=== PATIENT | female | born 1950 | race Caucasian/White ===

== ENCOUNTER 2020-07-15 09:40 | Day surgery (SDC) | payer MEDICARE, BC ==
[~2020-07-15] VITALS: Ht 167.6 cm; Wt 88.7 kg
[~2020-07-15 09:40] MED LIST: PRINIVIL5 MG PO
--- NOTE | 2020-07-15 16:56 | NUR ---
PT CAME TO THE UNIT AROUND 1630 ON 07/15/2020. SHE IS POD 0 OF A RIGHT TOTAL KNEE REPLACEMENT. SHE WAS ALERT AND ORIENTED X4. VITAL SIGNS WERE WNL AND WAS ON RA. SHE HAD SPINAL ANESTHESIA AND STILL CAN NOT FEEL HER LEGS. PT REPORTS THEM FEELING LIKE " WEIGHT". SHE DOES NOT FEEL ANY PAIN AT THIS TIME. SHE REPORTS NUMBNESS BUT HAS STRONG PULSES IN BOTH LEGS. HER RIGHT KNEE AQUACEL AND NAT WRAP ARE D/C/I. SHE HAS TOLERATED PO INTAKE. SHE IS CURRENTLY LAYING IN BED WITH HER ONLINE BOOK READING. CALL LIGHT IS WITHIN REACH.
--- NOTE | 2020-07-15 18:22 | NUR ---
SHIFT SUMMARY: POD 0 RIGHT KNEE REPLACEMENT PT IS ALERT AND ORIENTED X4. VS ARE WNL AND IS ON RA. PT HAD SPINAL ANESTHESIA. HER RIGHT KNEE IS SWOLLEN AND RED BUT HAS STRONG PULSES IN BLE. PT REPORTS HAVING TINGLING IN LEGS NOW AND CAN MOVE HER LEGS MORE. HER NAT WRAP AND AQUACEL IS D/C/I. SHE IS A REJI PT TO WORK WITH. SHE IS CURRENTLY CHATTING WITH A FRIEND WHILE LAYING IN BED. CALL LIGHT WITHIN REACH. SHE IS TOLERATING PO INTAKE. PT REPORTS NOT HAVING PAIN YET. THE PLAN IS TO WORK WITH PT TOMORROW AND TO CONTINUE TO MANAGE PAIN.
[2020-07-16 04:41] LABS: BASOPHILS ABSOLUTE AUTO 0.02 K/mm3 (0.00-0.23); BASOPHILS PERCENT AUTO 0 % (0-2); EOSINOPHILS PERCENT AUTO 0 % (0-6); Hematocrit 36.4 % (33.0-51.0); Hemoglobin 12.1 g/dL (11.5-16.0); IMMATURE GRAN ABSOLUTE AUTO 0.07 K/mm3 (0.00-0.10); IMMATURE GRAN PERCENT AUTO 1 % (0-1); LYMPHOCYTES ABSOLUTE AUTO 0.75 K/mm3 (0.84-5.20); LYMPHOCYTES PERCENT AUTO 5 % (21-46); MONOCYTES ABSOLUTE AUTO 0.76 K/mm3 (0.16-1.47); MONOCYTES PERCENT AUTO 5 % (4-13); Mean Corpuscular HGB 32.4 pg (26.0-34.0); Mean Corpuscular HGB Conc 33.2 g/dL (31.5-36.5); Mean Corpuscular Volume 98 fL (80-100); Mean Platelet Volume 10.1 fL (9.1-12.4); NEUTROPHILS ABSOLUTE AUTO 12.82 K/mm3 (1.96-9.15); NEUTROPHILS PERCENT AUTO 89 % (41-73); Platelet Count 266 K/mm3 (150-400); RDW Coefficient Variation 12.7 % (11.7-14.2); RDW Standard Deviation 45.6 fL (35.1-46.3); Red Blood Cell Count 3.73 M/mm3 (3.80-5.20); White Blood Cell Count 14.42 K/mm3 (4.00-11.30)
--- NOTE | 2020-07-16 04:43 | NUR ---
SHIFT SUMMARY PT IS A/O X4. SBA WITH FWW TO AMBULATE. PT HAS AMBULATED THIS SHIFT. TOLERATING PO INTAKE AND VOIDING. DRESSING TO R KNEE CDI. POLAR PACK IN PLACE OVERNIGHT. PAIN MANAGED WITH TYLENOL/TORADOL AND OXY X1 PRN FOR BREAKTHROUGH. PT IS RESTING IN BED WITH CALL LIGHT IN PLACE. DENIES FURTHER NEEDS AT THIS TIME.
[2020-07-16 04:59] LABS: Anion Gap 4 mmol/L (6-16); Blood Urea Nitrogen 20 mg/dL (8-24); Bun/Creatinine Ratio 25.8 (12.0-20.0); CO2, Blood 27 mmol/L (21-32); Calcium, Blood 8.9 mg/dL (8.5-10.1); Chloride, Blood 105 mmol/L (98-108); Creatinine, Blood 0.78 mg/dL (0.40-1.00); Glomerular Filtration Rate >60 (60-); Glucose, Blood 131 mg/dL (70-99); Potassium, Blood 4.3 mmol/L (3.5-5.5); Sodium, Blood 136 mmol/L (136-145)
[2020-07-16] MEDS ORDERED: Aspir 8181 MG PO (09:02)
[2020-07-16] MEDS ORDERED: Percocet 5-3251 EACH PO (09:03)
== END 2020-07-16 11:58 | disposition home or self-care (01) ==
LOC: ORSCMMR 09:40 → ORD 11:00 → ORSCMMR 11:00 → SURS 15:43 → ORSCMMR 15:43 → SURS 07-16 11:58 → ORSCMMR 07-16 11:58
PROVIDERS: Orthopaedic Surgery
PROC: 0SRC0JA Replacement of Right Knee Joint with Synthetic Substitute, Uncemented, Open Approach (ICD-10-PCS; principal; 2020-07-15 11:00)
PROC: 8E0YXBZ Computer Assisted Procedure of Lower Extremity (ICD-10-PCS; principal; 2020-07-15 11:00)
DX: M17.11 Unilateral primary osteoarthritis, right knee (principal); I10 Essential (primary) hypertension; Z79.899 Other long term (current) drug therapy; E66.9 Obesity, unspecified; Z68.31 Body mass index [BMI] 31.0-31.9, adult
CPT/HCPCS: 36415; 73560-RT; 80048; 85025; 88300; 97110; 97116; 97162; 97530; A9270; A9270-GY; C1776; J0171; J0690; J0735; J1885; J2250; J2704; J2795; J3010; J7120

== ENCOUNTER → 2020-10-01 | Outpatient (CLI) | payer MEDICARE, BC ==
[~2020-10-01] MED LIST changes: +Aspir 8181 MG PO; +Percocet 5-3251 EACH PO
[2020-10-03 16:10] LABS: HPV 16 Negative (Negative); HPV 18 Negative (Negative); HPV OTHER HR TYPES Negative (Negative)
== END ==
LOC: LAB SHORT 15:55 → LAB 15:55
PROVIDERS: Obstetrics & Gynecology
DX: Z01.419 Encounter for gynecological examination (general) (routine) without abnormal findings (principal)
CPT/HCPCS: 87624; G0123

== ENCOUNTER → 2020-10-29 | Outpatient (CLI) | payer MEDICARE, BC | END | disposition home or self-care (01) | LOC: LAB 08:37 → LAB SHORT 08:37 | DX: L82.0 Inflamed seborrheic keratosis (principal) | CPT/HCPCS: 88305 ==

== ENCOUNTER → 2021-03-03 | Outpatient (CLI) | payer MEDICARE, BC | END | disposition home or self-care (01) | LOC: LAB 15:23 → LAB SHORT 15:23 | DX: N39.0 Urinary tract infection, site not specified (principal) | CPT/HCPCS: 87086 ==

== ENCOUNTER 2021-06-04 09:38 | Day surgery (SDC) | payer MEDICARE, BC ==
[~2021-06-04] VITALS: Ht 167.6 cm; Wt 88.9 kg
[2021-06-04] MEDS ORDERED: MELO7.5 (09:55)
[2021-06-04] MEDS ORDERED: OMEP20ER (09:56)
--- NOTE | 2021-06-04 11:30 | NUR ---
06/04/21 1130 Regina Barton 1117 O2 UP TO 5L/NC, SATS 89% ON 3L/NC. CHIN LIFT DONE.
== END 2021-06-04 12:55 | disposition home or self-care (01) ==
LOC: ORSCSDS 09:38
PROVIDERS: Student in an Organized Health Care Education/Training Program
PROC: 0DBK8ZX Excision of Ascending Colon, Via Natural or Artificial Opening Endoscopic, Diagnostic (ICD-10-PCS; principal; 2021-06-04 11:45)
PROC: 0DB48ZX Excision of Esophagogastric Junction, Via Natural or Artificial Opening Endoscopic, Diagnostic (ICD-10-PCS; principal; 2021-06-04 11:45)
PROC: 0DBL8ZX Excision of Transverse Colon, Via Natural or Artificial Opening Endoscopic, Diagnostic (ICD-10-PCS; principal; 2021-06-04 11:45)
PROC: 0DBN8ZX Excision of Sigmoid Colon, Via Natural or Artificial Opening Endoscopic, Diagnostic (ICD-10-PCS; principal; 2021-06-04 11:45)
DX: K21.9 Gastro-esophageal reflux disease without esophagitis (principal); Z12.11 Encounter for screening for malignant neoplasm of colon; Z86.010 Personal history of colon polyps; K22.70 Barrett's esophagus without dysplasia; D12.2 Benign neoplasm of ascending colon; D12.3 Benign neoplasm of transverse colon; D12.5 Benign neoplasm of sigmoid colon; K63.3 Ulcer of intestine; I10 Essential (primary) hypertension; Z79.899 Other long term (current) drug therapy
CPT/HCPCS: 88305; J2704; J7120

== ENCOUNTER → 2021-06-21 | Outpatient (CLI) | payer MEDICARE, BC ==
[~2021-06-21] MED LIST changes: +MELO7.5; +OMEP20ER
== END | disposition home or self-care (01) ==
LOC: LAB SHORT 12:07 → LAB 12:07
DX: N30.01 Acute cystitis with hematuria (principal)
CPT/HCPCS: 87077; 87086; 87186

== ENCOUNTER → 2021-11-02 | Outpatient (CLI) | payer MEDICARE, BC | END | disposition home or self-care (01) | LOC: LAB SHORT 12:19 | DX: N39.0 Urinary tract infection, site not specified (principal) | CPT/HCPCS: 87086 ==

== ENCOUNTER 2023-07-05 11:09 | Day surgery (SDC) | payer MEDICARE, BC ==
[2023-07-05] VITALS (15 sets, daily range): BP systolic 98–133; BP diastolic 52–86
[~2023-07-05] VITALS: Ht 167.6 cm; Wt 68.6 kg
[~2023-07-05 11:09] MED LIST changes: +EZALLOR SPRINKLE5 MG PO; +HYDPAM25 PO; +VALTREX PO; +Zoloft25 MG PO
--- NOTE | 2023-07-05 11:57 | NUR ---
History, Chart, Medications and Allergies reviewed before start of procedure. Ambulatory in Day Surgery. Pre-Op teaching done. Pt verbalizes understanding. Patient confirms NPO status and agrees with scheduled surgery. Patient reports completing Chlorhexadine shower X2 prior to admission to hospital. Surgical site prepped with 2% Chlorhexidine cloth wipe. Lungs clear T/O to Auscultation. Patient States Post-Procedure ride home has been arranged.
--- NOTE | 2023-07-05 16:45 | NUR ---
ARRIVAL TO SURGICAL UNIT VIA HOSPITAL BED, ALERT & PLEASANT. ASSESSMENT CHARTED. DENIES N/V. ICE WATER & SNACKS GIVEN. WILL ORDER DINNER TRAY. DENIES PAIN, BUT UNABLE TO WIGGLE TOES OR MOVE BLE R/T SPINAL.
[2023-07-06 01:08] VITALS: BP 101/58
--- NOTE | 2023-07-06 04:48 | NUR ---
SHIFT SUMMARY NOC. PT POD 1 FOR LEFT TOTAL KNEE. PT A/O X4. AQUACEL IS CLEAN, DRY, AND INTACT. PT VOIDING URINE AND AMBULATED TO THE BATHROOM. PT TOLERATING PO INTAKE. PT MEDICATED FOR PAIN WITH OXY X1 WITH RELIEF. PT RESTED WITH EYES CLOSED AND CALL LIGHT IN REACH.
[2023-07-06 05:44] VITALS: BP 93/54
[2023-07-06 06:24] LABS: BASOPHILS ABSOLUTE AUTO 0.03 K/mm3 (0.00-0.23); BASOPHILS PERCENT AUTO 0 % (0-2); EOSINOPHILS ABSOLUTE AUTO 0.04 K/mm3 (0.00-0.68); EOSINOPHILS PERCENT AUTO 0 % (0-6); Hematocrit 31.8 % (33.0-51.0); Hemoglobin 10.5 g/dL (11.5-16.0); IMMATURE GRAN ABSOLUTE AUTO 0.03 K/mm3 (0.00-0.10); IMMATURE GRAN PERCENT AUTO 0 % (0-1); LYMPHOCYTES ABSOLUTE AUTO 2.35 K/mm3 (0.84-5.20); LYMPHOCYTES PERCENT AUTO 25 % (21-46); MONOCYTES ABSOLUTE AUTO 1.01 K/mm3 (0.16-1.47); MONOCYTES PERCENT AUTO 11 % (4-13); Mean Corpuscular HGB 33.4 pg (26.0-34.0); Mean Corpuscular Volume 101 fL (80-100); Mean Platelet Volume 10.3 fL (9.1-12.4); NEUTROPHILS PERCENT AUTO 64 % (41-73); Platelet Count 203 K/mm3 (150-400); RDW Coefficient Variation 13.5 % (11.7-14.2); Red Blood Cell Count 3.14 M/mm3 (3.80-5.20); White Blood Cell Count 9.46 K/mm3 (4.00-11.30)
[2023-07-06 07:11] LABS: Bun/Creatinine Ratio 17.3 (12.0-20.0); Calcium, Blood 8.4 mg/dL (8.5-10.1); Creatinine, Blood 0.87 mg/dL (0.40-1.00); Potassium, Blood 3.8 mmol/L (3.5-5.5)
[2023-07-06 07:17] VITALS: BP 91/55
[2023-07-06] MEDS ORDERED: ASPI81CH PO (11:09)
[2023-07-06] MEDS ORDERED: Percocet 5-3251 EACH PO (11:09)
--- NOTE | 2023-07-06 13:15 | NUR ---
DISCHARGE PT DISCHARGED HOME FROM UNIT AT APROX 1220. PT GIVEN WRITTEN AND VERBAL DC INSTRUCTIONS AND VERBALIZED UNDERSTANDING OF THESE INSTRUCTIONS. WRITTEN RX'S FOR PAIN MEDICATION GIVEN TO PT, COPY IN CHART. EXTRA DRESSINGS GIVEN TO PT. WC TO CAR.
== END 2023-07-06 12:20 | disposition home or self-care (01) ==
LOC: ORSCMMR 11:09 → ORD 12:30 → SURS 16:29 → ORSCMMR 07-06 12:20
PROVIDERS: Orthopaedic Surgery
PROC: 0SRD0JA Replacement of Left Knee Joint with Synthetic Substitute, Uncemented, Open Approach (ICD-10-PCS; principal; 2023-07-05 12:30)
DX: M17.12 Unilateral primary osteoarthritis, left knee (principal); Z96.651 Presence of right artificial knee joint; I10 Essential (primary) hypertension; E78.5 Hyperlipidemia, unspecified; Z79.899 Other long term (current) drug therapy
CPT/HCPCS: 36415; 73560-LT; 80048; 85025; 97110; 97116; 97162; 97530; A9270; C1713; C1776; J0171; J0690; J0735; J1885; J2250; J2704; J2795; J7120

== ENCOUNTER → 2024-01-03 | Outpatient (CLI) | payer MEDICARE, BC ==
[~2024-01-03] MED LIST changes: +ASPI81CH PO
[2024-01-03 12:16] LABS: Source, Urine Clean Catch
[2024-01-03 16:13] LABS: Bilirubin, Urine Neg (Neg); Blood, Urine 2+ (Neg); Color, Urine Yellow (P-Yellow); Glucose Qualitative, Urine Neg (Neg); Ketones, Urine Neg (Neg); Leukocyte Esterase, Urine 2+ (Neg); Nitrite, Urine Neg (Neg); Protein, Urine Neg (Neg); Specific Gravity, Urine 1.005 (1.003-1.022); Urobilinogen, Urine NORM (Normal)
[2024-01-03 16:37] LABS: Appearance, Urine Hazy (Clear); Bacteria Mod /hpf; Red Blood Cells, Urine 0-2 /hpf (0-2); Squamous Epithelial Cells Few /hpf (Few)
[2024-01-03 16:38] LABS: Mucus Light (0-Heavy); Transitional Epithelial Cells Rare /hpf (0-Rare)
== END | disposition home or self-care (01) ==
LOC: LAB 12:12 → LAB SHORT 12:12
PROVIDERS: Advanced Practice Midwife
DX: N39.0 Urinary tract infection, site not specified (principal)
CPT/HCPCS: 81001; 87086